=== PATIENT | female | born 1965 | race Caucasian/White ===

== ENCOUNTER 2018-12-26 10:39 | Day surgery (SDC) | payer BC ==
[2018-12-25 15:35] VITALS: BMI 31.1
[2018-12-26 11:36] LABS: BASO % 0.6 % (0-2.0); EOS % 1.2 % (0-4.5); HEMATOCRIT 36.3 % (32.4-45.2); HEMOGLOBIN 12.3 GM/dL (10.7-15.3); LYMPH % 38.5 % (8-40); MCH 28.9 pg (25.7-33.7); MCHC 33.9 g/dl (32.0-36.0); MEAN CELL VOLUME 85.4 fl (80-96); MEAN PLT VOLUME 7.6 fl (7.5-11.1); MONO % 5.9 % (3.8-10.2); NEUT % 53.8 % (42.8-82.8); RBC 4.26 M/mm3 (3.60-5.2); RDW 16.5 % (11.6-15.6); WHITE BLOOD COUNT 5.8 K/mm3 (4.0-10.0)
[2018-12-26 11:38] LABS: EPI CELLS 1.7 /HPF (0-5/HPF); HYALINE CASTS 4 /lpf (0-8); URINE APPEARANCE CLEAR; URINE BILIRUBIN NEGATIVE (NEGATIVE); URINE COLOR YELLOW; URINE GLUCOSE (UA) NEGATIVE (NEGATIVE); URINE KETONE NEGATIVE (NEGATIVE); URINE LEUK ESTERASE 1+ (NEGATIVE); URINE NITRITE NEGATIVE (NEGATIVE); URINE PROTEIN NEGATIVE (NEGATIVE); URINE RBC 5 /hpf (0-4); URINE UROBILINOGEN 0.2 mg/dL (0.2-1.0); URINE WBC 3 /hpf (0-5)
[2018-12-26 11:52] LABS: PLATELET COUNT 351 K/MM3 (134-434)
[2018-12-26 11:59] LABS: INR 0.99 (0.83-1.09); PROTHROMBIN TIME (PATIENT) 11.7 SEC (9.7-13.0)
[2018-12-26 12:01] LABS: ALBUMIN 3.7 g/dl (3.4-5.0); BILIRUBIN,TOTAL 0.3 mg/dL (0.2-1); BLOOD UREA NITROGEN 18.4 mg/dL (7-18); CALCIUM 9.1 mg/dL (8.5-10.1); CREATININE 0.5 mg/dL (0.55-1.3); POTASSIUM 4.1 mmol/L (3.5-5.1); TOT PROT 7.5 g/dl (6.4-8.2)
[2018-12-26] MEDS ORDERED: BUPIVACAINE HCL/PF 0.5% (5MG/ML) 10 ML VIAL ONE (12:27)
[2018-12-26] MEDS ORDERED: MIDAZOLAM HCL 2 MG/2 ML SINGLE DOSE VIAL ONE (12:49)
[2018-12-26] MEDS ORDERED: fentaNYL CITRATE 250 MCG/5 ML VIAL ONE (12:49)
[2018-12-26] MEDS ORDERED: SUCCINYLCHOLINE CHLORIDE 200 MG/10 ML SYRINGE ONE (12:51)
[2018-12-26] MEDS ORDERED: ROCURONIUM BROMIDE 50 MG/5 ML SYRINGE ONE (12:51)
[2018-12-26] MEDS ORDERED: DEXAMETHASONE SOD PHOSPHATE 4 MG/1 ML VIAL ONE (12:52)
[2018-12-26] MEDS ORDERED: LIDOCAINE HCL/PF 2% SDV 5ML VIAL ONE (12:52)
[2018-12-26] MEDS ORDERED: ceFAZolin SODIUM 1 GM VIAL ONE (13:10)
[2018-12-26] MEDS ORDERED: ceFAZolin SODIUM 1 GM VIAL IVPB ONE (13:10)
[2018-12-26] MEDS ORDERED: ONDANSETRON 4 MG/2 ML VIAL IVPUSH PRN (13:14)
[2018-12-26] MEDS ORDERED: NEOSTIGMINE METHYLSULFATE 0.5 MG/ML - 10 ML MDV ONE (14:10)
[2018-12-26] MEDS ORDERED: GLYCOPYRROLATE 0.2 MG/1 ML VIAL ONE (14:10)
[2018-12-26] MEDS ORDERED: KETOROLAC TROMETHAMINE 30 MG/1 ML VIAL ONE (14:14)
[2018-12-26] MEDS ORDERED: BUPIVACAINE HCL/PF (5 MG/ML) 30 ML VIAL IJ ONE (14:30)
[2018-12-26] MEDS ORDERED: oxyCODONE HCL 5 MG TABLET PO PRN ×2 (14:59)
--- NOTE | 2018-12-26 15:13 | OP ---
Operative Note - Note: Operative Date: 12/26/18 Pre-Operative Diagnosis: cholelithiasis Operation: laparscopic cholecystectomy Findings: purulent drainage from gallbladder with stones Surgeon: Justin Mccoy Jig Maker: Lidia Garcia Anesthesiologist/UKE DRIVER: Barrie Mcrae Anesthesia: General Specimens Removed: gallbladder Estimated Blood Loss (mls): 30 Fluid Volume Replaced (mls): 1,000 Operative Report Dictated: Yes
--- NOTE | 2018-12-26 15:14 | SURG ---
Surgery Transport Technician Note Transport Technician: Lidia Garcia PA-C Date of Service: 12/26/18 Diagnosis: cholelithiasis Procedure: laparscopic cholecystectomy I was present for the entirety of the operative procedure. For further detail, please refer to operative report. Visit type - Case Type Case Type: Scheduled - Emergency Emergency Visit: No - New patient This patient is new to me today: Yes Date on this admission: 12/26/18
[2018-12-26] MEDS ORDERED: MEPERIDINE HCL 25 MG/ML VIAL IVPUSH ONE (15:15)
[2018-12-26] MEDS: LACTATED RINGERS SOLUTION 1,000 ML IV SCH ×2 (21:00→22:18)
[2018-12-26] MEDS: HEPARIN NA (PORCINE) 5,000 UNITS/ML 1ML VIAL SQ SCH (22:10)
[2018-12-26] MEDS: ACETAMINOPHEN 325 MG TABLET (FP) PO SCH (22:12)
[2018-12-26] MEDS ORDERED: KETOROLAC TROMETHAMINE 15 MG/ML VIAL IVPUSH PRN (23:00)
[2018-12-27] MEDS: ACETAMINOPHEN 325 MG TABLET (FP) PO SCH ×3 (02:21→05:57)
[2018-12-27 06:28] LABS: HEMATOCRIT 34.2 % (32.4-45.2); HEMOGLOBIN 11.4 GM/dL (10.7-15.3); MCH 28.6 pg (25.7-33.7); MCHC 33.3 g/dl (32.0-36.0); MEAN CELL VOLUME 85.9 fl (80-96); MEAN PLT VOLUME 7.7 fl (7.5-11.1); PLATELET COUNT 339 K/MM3 (134-434); RBC 3.98 M/mm3 (3.60-5.2); RDW 16.7 % (11.6-15.6); WHITE BLOOD COUNT 13.1 K/mm3 (4.0-10.0)
[2018-12-27 07:05] VITALS: BP 116/61; PULSE 65; TEMP 98.1
--- NOTE | 2018-12-27 08:21 | DS ---
Physical Exam: SUBJECTIVE: Patient seen and examined this am. Slight nausea overnight but tolerated clears. No CP or SOB. Voiding without difficulty. OBJECTIVE: Vital Signs Temperature 98.1 F 12/27/18 06:00 Pulse Rate 65 12/27/18 06:00 Respiratory Rate 20 12/27/18 06:00 Blood Pressure 116/61 12/27/18 06:00 O2 Sat by Pulse Oximetry (%) 99 12/26/18 21:15 ALINA-25ml serosangrneous PHYSICAL EXAM GENERAL: The patient is awake, alert, and fully oriented, in no acute distress. LUNGS: Breath sounds equal, clear to auscultation bilaterally. HEART: Regular rate and rhythm. ABDOMEN: Soft, nontender, nondistended. Incisional tenderness. Inc c/d/i. Alina removed(intact) dry dressing applied with gauze/tegaderm. EXTREMITIES: 2+ pulses, warm, well-perfused, no edema. No calf tenderness or swelling noted b/l. LABS CBC,CMP WBC 13.1 K/mm3 (4.0-10.0) H 12/27/18 05:54 RBC 3.98 M/mm3 (3.60-5.2) 12/27/18 05:54 Hgb 11.4 GM/dL (10.7-15.3) 12/27/18 05:54 Hct 34.2 % (32.4-45.2) 12/27/18 05:54 MCV 85.9 fl (80-96) 12/27/18 05:54 MCH 28.6 pg (25.7-33.7) 12/27/18 05:54 MCHC 33.3 g/dl (32.0-36.0) 12/27/18 05:54 RDW 16.7 % (11.6-15.6) H 12/27/18 05:54 Plt Count 339 K/MM3 (134-434) 12/27/18 05:54 MPV 7.7 fl (7.5-11.1) 12/27/18 05:54 Absolute Neuts (auto) 3.1 K/mm3 (1.5-8.0) 12/26/18 10:53 Neutrophils % 53.8 % (42.8-82.8) 12/26/18 10:53 Lymphocytes % 38.5 % (8-40) 12/26/18 10:53 Monocytes % 5.9 % (3.8-10.2) 12/26/18 10:53 Eosinophils % 1.2 % (0-4.5) 12/26/18 10:53 Basophils % 0.6 % (0-2.0) 12/26/18 10:53 Nucleated RBC % 0 % (0-0) 12/26/18 10:53 Sodium 141 mmol/L (136-145) 12/26/18 10:53 Potassium 4.1 mmol/L (3.5-5.1) 12/26/18 10:53 Chloride 109 mmol/L (98-107) H 12/26/18 10:53 Carbon Dioxide 25 mmol/L (21-32) 12/26/18 10:53 Anion Gap 7 MMOL/L (8-16) L 12/26/18 10:53 BUN 18.4 mg/dL (7-18) H 12/26/18 10:53 Creatinine 0.5 mg/dL (0.55-1.3) L 12/26/18 10:53 Est GFR (CKD-EPI)AfAm 128.07 12/26/18 10:53 Est GFR (CKD-EPI)NonAf 110.50 12/26/18 10:53 Random Glucose 93 mg/dL (74-106) 12/26/18 10:53 Calcium 9.1 mg/dL (8.5-10.1) 12/26/18 10:53 Total Bilirubin 0.3 mg/dL (0.2-1) 12/26/18 10:53 AST 22 U/L (15-37) 12/26/18 10:53 ALT 32 U/L (13-61) 12/26/18 10:53 Alkaline Phosphatase 101 U/L (45-117) 12/26/18 10:53 Total Protein 7.5 g/dl (6.4-8.2) 12/26/18 10:53 Albumin 3.7 g/dl (3.4-5.0) 12/26/18 10:53 HOSPITAL COURSE: The patient was admitted to the medical surgical unit post op for observation. She received britany-operative IV abx. A Artis bland drain was placed at the time of surgery. It drained 25 ml overnight and was removed prior to discharge. The patient tolerated clears and her diet was advanced for breakfast. She was discharge to home with oral pain medications. She ambulated and voided prior to discharge. Care and discharge plan discussed with Dr. Mccoy prior to the patient leaving. Date of Admission:12/26/18 Date of Discharge: 12/27/18 Minutes to complete discharge: 20 Visit type - Case Type Case Type: Scheduled - Emergency Emergency Visit: No - New patient This patient is new to me today: No
[2018-12-27] MEDS: HEPARIN NA (PORCINE) 5,000 UNITS/ML 1ML VIAL SQ SCH (10:16)
--- NOTE | 2018-12-27 11:19 | OP ---
DATE OF OPERATION: 12/26/2018 PREOPERATIVE DIAGNOSIS: Acute cholecystitis and cholelithiasis. POSTOPERATIVE DIAGNOSIS: Acute cholecystitis and cholelithiasis. OPERATIVE PROCEDURE: Laparoscopy, laparoscopic cholecystectomy. SURGEON: Justin Mccoy MD COMMUNICATIONS PROFESSIONAL: ANYI Murillo ANESTHESIA: General endotracheal intubation. DESCRIPTION OF PROCEDURE: Patient was admitted with acute abdominal pain in the right upper quadrant, and the sonogram MRI all showed multiple stones. With this, the patient was brought in the operating room. The abdomen was prepped and draped. Intravenous antibiotic was given. Since the patient had previous multiple surgeries in the abdomen, a small cut-down was made in the umbilicus with open technique. Abdominal cavity was entered, and 11 cannula was inserted, and under direct vision, three 5-mm cannulas were placed, one medially and two laterally. The omentum was found to be severely adherent to the gallbladder, acutely inflamed, with pus around the gallbladder. When all this was aspirated, the gallbladder was then drained. Once it was drained, the gallbladder was then grasped proximally and distally, and omentum was taken away from the attachments, and the cystic artery and the ducts were both clearly visualized and endoclipped, and the gallbladder was removed from the liver with some difficulty because of the severe adhesions and all the necrosis. Once it was taken out, Artis-Sosa was introduced, brought through one of the ports, and the wound was irrigated, the gallbladder floor was irrigated. No bleeding was identified. Fascia was closed with No. 1 Vicryl. Patient went to the recovery room in stable condition. JUSTIN MCCOY M.D. [id number] cc: Dr. Indira Appiah
--- NOTE | 2018-12-28 17:14 | PATH ---
Surgical Pathology Report Patient Name: SABRINA [place] [facility] Rec. #: [id number] /Age/Gender: 1965 (Age: 53) / F Account: [id number] Location: AMBULATORY SURG Taken: 12/26/2018 Received: 12/27/2018 Reported: 12/28/2018 Physicians: Justin Mccoy M.D. Specimen(s) Received GALLBLADDER Clinical History Cholelithiasis Final Diagnosis GALLBLADDER, CHOLECYSTECTOMY: MILD ACUTE SUPERIMPOSED ON CHRONIC CHOLECYSTITIS. CHOLELITHIASIS Electronically Signed Scott Vo M.D. Gross Description Received in formalin, labeled "gallbladder," is an 11.0 x 4.0 x 3.8 cm. gallbladder with a 0.2 cm. in length portion of cystic duct attached. The outer surface is denny-alracon with a focal defect and varies from smooth to shaggy. The lumen contains yellow, sludge like bile as well as abundant yellow, irregular to fragmented choleliths ranging from 0.1-2.3 cm in greatest dimension. The mucosa is denny-brown and eroded. The wall of the gallbladder ranges from 0.1-0.2 cm. in thickness. [facility] Nurse sections are submitted in one cassette. /12/27/2018 saudi12/27/2018
== END 2018-12-27 12:13 | disposition home or self-care (01) ==
LOC: JASUSAT 10:39 → JASU-SURG 10:39 → J8W 21:15 → JASUSAT 12-27 12:13
PROVIDERS: ATTEND Surgery Vascular Surgery
PROC: 0FT44ZZ Resection of Gallbladder, Percutaneous Endoscopic Approach (ICD-10-PCS; principal; 2018-12-26 12:30)
DX: K80.00 Calculus of gallbladder with acute cholecystitis without obstruction (principal)
CPT/HCPCS: 36415; 80053; 81003; 85025; 85027; 85610; 88304-TC; 94760; J1644